=== PATIENT | male | born 1985 | race Caucasian/White ===

== ENCOUNTER 2017-03-27 20:41 | Emergency (ER) | payer BC ==
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
[2017-03-27] MEDS ORDERED: Lidocaine 1% 20 ML MDV INJECT ONE (21:36)
[2017-03-27 22:52] VITALS: BP 123/72
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
== END 2017-03-27 22:30 | disposition home or self-care (01) ==
LOC: MW.ED 20:41
DX: S06.0X9A Concussion with loss of consciousness of unspecified duration, initial encounter (principal); S01.511A Laceration without foreign body of lip, initial encounter; S80.01XA Contusion of right knee, initial encounter; S80.211A Abrasion, right knee, initial encounter; F17.210 Nicotine dependence, cigarettes, uncomplicated; Z90.49 Acquired absence of other specified parts of digestive tract; Z79.899 Other long term (current) drug therapy; X58.XXXA Exposure to other specified factors, initial encounter
CPT/HCPCS: 12011; 70450; 70450-26; 72125; 72125-26; 73562-26-RT; 73562-RT; 99284; 99284-25

== ENCOUNTER 2023-09-07 18:51 | Emergency (ER) | payer BC, OTHER ==
[2023-09-07] MEDS ORDERED: Ibuprofen 400 MG Tab PO ONE (19:05)
[2023-09-07] MEDS ORDERED: Lidocaine 4% 1 each Patch TOP STA (19:14)
[2023-09-07 20:48] VITALS: BP 133/77; PULSE 75
== END 2023-09-07 20:48 | disposition home or self-care (01) ==
LOC: MW.ED 18:51
DX: S50.12XA Contusion of left forearm, initial encounter (principal); Z90.49 Acquired absence of other specified parts of digestive tract; W01.198A Fall on same level from slipping, tripping and stumbling with subsequent striking against other object, initial encounter
CPT/HCPCS: 73090; 99283; A9270